=== PATIENT | male | born 1970 | race Caucasian/White ===

== ENCOUNTER 2021-02-01 20:01 | Emergency (ER) | payer BC, SELFPAY ==
--- NOTE | 2021-02-01 20:03 | ECG_ITS ---
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 Measurements Intervals [place] Rate: 58 P: 41 SD: 173 QRS: 7 QRSD: 114 T: 16 QT: 429 QTc: 423 Interpretive Statements SINUS BRADYCARDIA MODERATE INTRAVENTRICULAR CONDUCTION DELAY [110+ ms QRS DURATION] Compared to ECG 01/18/2016 14:14:44 Intraventricular conduction delay now present Sinus rhythm no longer present Electronically Signed On 02-03-2021 7:39:21 PROJECT DEVELOPMENT LEADER by Martín Ocampo M.D. [id number]
--- NOTE | 2021-02-01 20:03 | XRR_ITS ---
PROCEDURE INFORMATION: Exam: XR Chest Exam date and time: 02/01/2021 8:03 PM Age: 50 years old Clinical indication: Pain; Other: Behind left shoulder blade; Additional info: Chest pain TECHNIQUE: Imaging protocol: XR of the chest. Views: 1 view. COMPARISON: CR Chest 1 [place] [id number] 01/18/2016 2:18 PM FINDINGS: Lungs: Unremarkable. No consolidation. Pleural spaces: Unremarkable. No pleural effusion. No pneumothorax. Heart/Mediastinum: Borderline cardiomegaly again seen. Bones/joints: Unremarkable. XR/XR chest 1V portable [id number] IMPRESSION: 1. No acute findings. 2. Borderline cardiomegaly again seen.
[2021-02-01 20:10] VITALS: BP 180/107; PULSE 59; RESP 16; TEMP 36.4; O2SAT 98; BMI 33.5
[2021-02-01 20:29] LABS: Basophils % 0.3 %; Eosinophils # 0.1 10^3/uL (0.0-0.8); Eosinophils % 1.7 %; Hematocrit 41.2 % (42.0-52.0); Hemoglobin 14.5 g/dL (11.7-16.6); Lymphocytes # 2.7 10^3/uL (0.8-4.8); Lymphocytes % 45.2 %; Mean Corpuscular HGB Conc 35.2 g/dL (30.0-36.0); Mean Corpuscular Volume 88.2 fl (80-94); Monocytes # 0.4 10^3/uL (0.2-0.9); Monocytes % 7.3 %; Neutrophils # 2.67 10^3/uL (1.8-7.7); Neutrophils % 45.2 %; Nucleated Red Blood Cells % 0 %; Platelet Count 207 10^3/cmm (130-400); Red Blood Count 4.67 10^6/uL (4.1-5.3); Red Cell Distribution Width 12.4 % (12.1-15.1); White Blood Count 5.9 10^3/uL (4.0-10.0)
[2021-02-01 21:00] LABS: Troponin(5th) Baseline 6 ng/L (0-15)
[2021-02-01 21:03] LABS: Alanine Aminotransferase 19 U/L (0-41); Albumin Level 4.3 g/dL (3.5-5.2); Alkaline Phosphatase 52 IU/L (40-130); Blood Urea Nitrogen 13 mg/dL (6-20); Calcium 8.7 mg/dL (8.5-10.5); Carbon Dioxide 23 mmol/L (22-29); Chloride 105 mmol/L (98-107); Globulin 2.7 g/dL (1.3-4.6); Glomerular Filtration Rate 102.3 mL/min (90-130); Glucose 99 mg/dL (65-115); Osmolality Calculated 288 mOsm/kg (285-295); Sodium 139 mmol/L (136-145); Total Bilirubin 0.3 mg/dL (0.15-1.2)
[2021-02-01 21:25] LABS: Aspartate Amino Transferase 19 U/L (0-40)
[2021-02-01 21:31] VITALS: BP 169/108; PULSE 59; RESP 17; O2SAT 96
[2021-02-01 21:45] VITALS: BP 161/108; PULSE 54
--- NOTE | 2021-02-01 21:50 | ED_ITS ---
HPI - Chest Pain General: Chief Complaint: Chest Pain Stated Complaint: Chest Pain\SOB Time Seen by Provider: 02/01/21 21:29 Source: patient Mode of arrival: ambulatory Limitations: no limitations History of Present Illness: HPI narrative: 50-year-old male states that he had a sharp chest pain earlier today states it started this afternoon lasted roughly an hour. States pain is sharp center of his chest worse with deep breaths in. States he did forget to take his blood pressure medicine his blood pressure was high at that time states that since his pain is completely resolved he has no complaints currently no shortness of breath no chest pain no radiation of pain no history of heart disease does have a history of high blood pressure. Associated symptoms: Deny abdominal pain, dyspnea, fever(s), nausea or vomiting Review of Systems Const: Denies: fever(s), chills, body aches or change in appetite Eyes: Denies: blurry vision or eye discomfort ENMT: Denies: throat pain or dental pain Card: Reports: chest pain Resp: Denies: dyspnea GI: Denies: abdominal pain, nausea, vomiting or diarrhea : Denies: dysuria Musc: Denies: neck pain or back pain Skin/Breast: Denies: rash Neuro: Denies: headache(s) Psych: Denies: depression Giovanni/Lymph: Denies: easy bruising All/Imm: Denies: urticaria Physical Exam Const: COMMON NORMALS: no acute distress, patient oriented x3 and healthy appearing HENMT: COMMON NORMALS: normocephalic and atraumatic HEAD & SCALP: normocephalic and atraumatic Eye: COMMON NORMALS: Equal, round and reactive pupils present and EOMs intact bilaterally PUPIL: Yes Equal, round and reactive pupils present Neck/C-Spine: COMMON NORMALS: full ROM and supple Chest: COMMONS NORMALS: normal inspection of the chest and normal palpation of entire chest wall Resp: COMMON NORMALS: normal respiratory effort, No retractions, No use of accessory muscles and clear to auscultation bilaterally AUSCULTATION: clear to auscultation bilaterally Cardio: COMMON NORMALS: regular rate, regular rhythm and No murmurs present (Cardio) RATE: regular rate RHYTHM: regular rhythm GI: COMMON NORMALS: Normal to inspection, nondistended, normoactive bowel sounds present, Soft to palpation, non-tender and no masses PALPATION: Yes Soft to palpation Extremity: COMMON NORMALS: normal to inspection and full ROM Neuro: COMMON NORMALS: patient oriented x3, moves all extremities and no focal motor deficits Psych: COMMON NORMALS: mental status grossly normal, Normal thought process present and cooperative THOUGHT PROCESS: Normal thought process present Skin: COMMON NORMALS: no rashes or lesions noted and no wounds GENERAL SKIN EXAM: no rashes or lesions noted Course Vital Signs: Vital signs: Vital Signs Temperature 97.6 F 02/01/21 20:10 Pulse Rate 50 L 02/01/21 22:38 Respiratory Rate 17 02/01/21 21:31 Blood Pressure 175/118 02/01/21 22:38 Pulse Oximetry 96 02/01/21 21:31 MDM - Chest Pain MDM Narrative: Medical decision making narrative: Patient presents with chest pain that is atypical in nature likely pleuritic from his description D-dimer and troponins here are negative no signs of coronary disease no signs of pulmonary embolism or dissection he feels much improved he stable for discharge and is to follow-up his PCP and return if worsening. Lab Data: Labs: Lab Results 02/01/21 02/01/21 02/01/21 20:20 20:20 20:20 WBC 5.9 10^3/uL 10^3/ uL (4.0-10.0) RBC 4.67 10^6/uL 10^6 /uL (4.1-5.3) Hgb 14.5 g/dL g/dL (11.7-16.6) Hct 41.2 % L % (42.0-52.0) MCV 88.2 fl fl (80-94) MCH 31.0 pg pg (28.0-34.0) MCHC 35.2 g/dL g/dL (30.0-36.0) RDW 12.4 % % (12.1-15.1) Plt Count 207 10^3/cmm 10^3 /cmm (130-400) MPV 10.0 fL fL (7.4-10.4) Neut % (Auto) 45.2 % % Lymph % (Auto) 45.2 % % [place] % (Auto) 7.3 % % Eos % (Auto) 1.7 % % Baso % (Auto) 0.3 % % Neut # (Auto) 2.67 10^3/uL 10^3 /uL (1.8-7.7) Lymph # (Auto) 2.7 10^3/uL 10^3/ uL (0.8-4.8) [place] # (Auto) 0.4 10^3/uL 10^3/ uL (0.2-0.9) Eos # (Auto) 0.1 10^3/uL 10^3/ uL (0.0-0.8) Baso # (Auto) 0.0 10^3/uL 10^3/ uL (0.0-0.1) Nucleated RBC % (a uto) 0 % % Nucleated RBCs # 0.0 /100WBC /100W BC D-Dimer Sodium 139 mmol/L mmol/L (136-145) Potassium 4.0 mmol/L mmol/L (3.5-5.1) Chloride 105 mmol/L mmol/L (98-107) Carbon Dioxide 23 mmol/L mmol/L (22-29) Anion Gap 15.0 (5-19) BUN 13 mg/dL mg/dL (6-20) Creatinine 0.8 mg/dL mg/dL (0.7-1.2) GFR Calculation 102.3 mL/min mL/m in (90-130) Glucose 99 mg/dL mg/dL (65-115) Calculated Osmolal ity 288 mOsm/kg mOsm/ kg (285-295) Calcium 8.7 mg/dL mg/dL (8.5-10.5) Total Bilirubin 0.3 mg/dL mg/dL (0.15-1.2) AST 19 U/L U/L (0-40) ALT 19 U/L U/L (0-41) Alkaline Phosphata se 52 IU/L IU/L (40-130) Troponin T Baselin e 6 ng/L ng/L (0-15) Troponin T 120 Min martha Delta Troponin T Total Protein 7.0 g/dL g/dL (6.6-8.7) Albumin 4.3 g/dL g/dL (3.5-5.2) Globulin 2.7 g/dL g/dL (1.3-4.6) 02/01/21 02/01/21 21:41 22:21 WBC RBC Hgb Hct MCV MCH MCHC RDW Plt Count MPV Neut % (Auto) Lymph % (Auto) [place] % (Auto) Eos % (Auto) Baso % (Auto) Neut # (Auto) Lymph # (Auto) [place] # (Auto) Eos # (Auto) Baso # (Auto) Nucleated RBC % (a uto) Nucleated RBCs # D-Dimer 0.32 ug/mIFEU ug/ mIFEU (0-0.59) Sodium Potassium Chloride Carbon Dioxide Anion Gap BUN Creatinine GFR Calculation Glucose Calculated Osmolal ity Calcium Total Bilirubin AST ALT Alkaline Phosphata se Troponin T Baselin e Troponin T 120 Min martha 6.00 ng/L ng/L (0-15) Delta Troponin T 0 ABS# ABS# (0-10) Total Protein Albumin Globulin Imaging Data^: CXR: Attestation: I personally reviewed and interpreted this imaging study as follows: Radiologist's impression: [employer] [address] XRay Report Signed Patient: Sacha Dominguez Unit #: [id number] : 1970 Age/Sex: 50 / M ADM Date: 02/01/21 Loc: ER Room/Bed: Attending Dr: Ordering Provider/Ordering MD: April Gandhi Date of Service: 02/01/21 Procedure(s): XR chest 1V portable [id number] Accession Number(s): [id number] Report Number: [id number] PROCEDURE INFORMATION: Exam: XR Chest Exam date and time: 02/01/2021 8:03 PM Age: 50 years old Clinical indication: Pain; Other: Behind left shoulder blade; Additional info: Chest pain TECHNIQUE: Imaging protocol: XR of the chest. Views: 1 view. COMPARISON: CR Chest 1 [place] [id number] 01/18/2016 2:18 PM FINDINGS: Lungs: Unremarkable. No consolidation. Pleural spaces: Unremarkable. No pleural effusion. No pneumothorax. Heart/Mediastinum: Borderline cardiomegaly again seen. Bones/joints: Unremarkable. XR/XR chest 1V portable [id number] IMPRESSION: 1. No acute findings. 2. Borderline cardiomegaly again seen. Dictated By: Akil Michele MD Signed By: Akil Michele MD Signed Date/Time: 02/01/212117 DD/ 02 EKG Data^: EKG 1: Attestation: I personally reviewed and interpreted this EKG as follows: EKG interpretation date: 02/28/21 EKG interpretation time: 20:09 Interpretation: sinus stefano hr [address] or t wave abnormalities qrs 114 qtc 426 EKG 2: Attestation: I personally reviewed and interpreted this EKG as follows: EKG interpretation date: 02/01/21 EKG interpretation time: 22:30 Interpretation: sinus stefano hr [address] or t wave changes qrs 114 qtc 430 Discharge Plan Discharge Patient Disposition: Home Clinical Impression: Chest pain Qualifiers: Chest pain type: unspecified Qualified Code(s): R07.9 - Chest pain, unspecified Condition: Stable Prescriptions: No Action losartan 50 mg tablet 50 mg PO DAILY RF: 0 metoprolol succinate 100 mg tablet extended release 24 hr 100 mg PO DAILY RF: 0 omeprazole 40 mg capsule,delayed release(DR/EC) 40 mg PO DAILY RF: 0 alprazolam 0.5 mg tablet 0.5 mg PO BEDTIME PRN (Reason: Sleep) RF: 0 escitalopram oxalate 10 mg tablet 10 mg PO DAILY RF: 0 hydrochlorothiazide 12.5 mg tablet 12.5 mg PO DAILY RF: 0 Discharge Orders: Discharge ED (Routine); Ordered 02/01/21 Ordered By: Brando Patton Discharge Diet: Advance as tolerated Discharge Activity: Resume usual activity Patient Instructions: Chest Pain (ED) Coding Level of Care Code ED Manager Ambulatory for Dylong Fwd Exam Comprehensive
[2021-02-01 22:03] LABS: D Dimer 0.32 ug/mIFEU (0-0.59)
--- NOTE | 2021-02-01 22:03 | ECG_ITS ---
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 Measurements Intervals [place] Rate: 48 P: 44 [place]: 171 QRS: 17 QRSD: 114 T: 12 QT: 464 QTc: 416 Interpretive Statements SINUS BRADYCARDIA MODERATE INTRAVENTRICULAR CONDUCTION DELAY [110+ ms QRS DURATION] Compared to ECG 02/01/2021 20:09:17 No significant changes Electronically Signed On 02-03-2021 7:46:25 SUPERVISOR ALTERATION WORKROOM by Martín Ocampo M.D. [id number]
[2021-02-01 22:38] VITALS: BP 175/118; PULSE 50
[2021-02-01 23:02] LABS: Troponin 5 2HR Delta 0 ABS# (0-10)
[2021-02-02 00:25] VITALS: BP 179/108; PULSE 44; O2SAT 99
== END 2021-02-01 23:38 | disposition home or self-care (01) ==
PROVIDERS: Physician Assistant; Emergency Provider Emergency Medicine
DX: R07.9 Chest pain, unspecified (principal)
CPT/HCPCS: 36415; 71045; 80053; 84484; 85025; 85378; 93005; 99283